=== PATIENT | male | born 1995 | race Hispanic/Latino ===

== ENCOUNTER 2025-07-21 01:00 | Emergency (ER) | payer SELFPAY ==
[~2025-07-21] VITALS: Ht 175.3 cm; Wt 154.7 kg
[2025-07-21 01:28] LABS: RAPID GROUP A STREP negative (NEGATIVE)
[2025-07-21 01:34] LABS: SARS-CoV-2, RNA, NAAT NEGATIVE SARS CoV-2 (NEGATIVE)
[2025-07-21 01:38] LABS: INFLUENZA TYPE B Negative For Type B (NEGATIVE)
[2025-07-21 01:39] LABS: IMMATURE GRANULOCYTE ABSOLUTE 0.03 K/uL (0-1); NUCLEATED RED BLOOD CELLS 0.0 % (0.0-0.19); PLATELET COUNT (AUTO) 303 K/uL (130-400); RED BLOOD CELL COUNT(AUTO) 4.93 MIL/uL (4.50-6.20); RED CELL DISTRIBUTION WIDTH 12.0 % (11.0-15.5); WHITE BLOOD COUNT (AUTO) 10.8 K/uL (4.8-10.8)
[2025-07-21] MEDS: 0.9%NACL 1000ML 1,000 ML IV ONE (01:44)
[2025-07-21 01:49] LABS: CREATININE 1.1 mg/dL (0.5-1.3); GLOMERULAR FILTR. RATE CALC 94.0 mL/min (>90); GLUCOSE,RANDOM 159.0 mg/dL (70-105); SODIUM SERUM 138.0 mmol/L (136-145); UREA NITROGEN, BLOOD 11.0 mg/dL (7-18)
[2025-07-21 01:56] LABS: INFLUENZA TYPE A Positive For Type A (NEGATIVE)
--- NOTE | 2025-07-21 02:52 | ERN ---
General Chief Complaint: Sore Throat Stated Complaint: C/O SORE THROAT X 6 DAYS Time Seen by MD: 01:14 Time Seen by Midlevel: 01:14 Source: patient History of Present Illness Initial Comments The patient is a 21-year-old male presenting to the emergency department for evaluation of a sore throat that started six days ago. Pain has progressively worsened. He has now developed fever and chills. Allergies: Coded Allergies: No Known Drug Allergies (Unverified Allergy, Unknown, 04/30/14) Home Meds Active Scripts Dexamethasone (Dexamethasone) 6 Mg Tablet, 6 MG PO DAILY for 5 Days, #5 TAB 0 Refills Prov:VIVIAN PINO MD 07/21/25 Clindamycin HCl (Clindamycin HCl) 300 Mg Capsule, 1 CAP PO QID for 10 Days, #40 CAP 0 Refills Prov:VIVIAN PINO MD 07/21/25 Past Medical History Past Medical History: No Pertinent History Past Surgical History: None ROS Dictation CONSTITUTIONAL: Negative except for HPI HEAD/FACE: Negative except for HPI EENT: Negative except for HPI RESPIRATORY: Negative except for HPI GASTROINTESTINAL/ABDOMINAL: Negative except for HPI GENITOURINARY: Negative except for HPI MUSCULOSKELETAL: Negative except for HPI INTEGUMENTARY: Negative except for HPI NEUROLOGICAL/PSYCH: Negative except for HPI HEMATOLOGIC/LYMPHATIC: Negative except for HPI All Systems Negative, Except as noted above. 13 point review of systems assessed and all negative except for above. Physical Exam Physical Exam Dictation Vital Signs reviewed General Appearance: Alert, oriented x 3, no acute distress, well developed, nourished. Head and Face: non-traumatic. Eyes: PERRL, pink conjunctivas, eyelid no trauma, anterior chamber with arcus senilis. Ears: Pinnas intact and no signs of trauma or erythema ear canals clear and no discharge TM no erythema Nose: No discharge, no bleeding. Oropharynx: Mouth normal, tongue pink, pharynx clear,no erythema, tonsils no exudates, left peritonsillar abscess, mucous membrane moist Neck: Supple, non-tender, no thyromegaly, no masses, no JVD, no bruits Breast:Deferred Chest:No tenderness, no crepitus, no paradoxical movement, no retractions Lungs:Clear, well-ventilated, symmetric, no rales, no wheezing, no rhonchi, no stridor, good breath sounds bilaterally Heart: Regular rate, regular rhythm, no murmur, no gallops Vascular: no peripheral edema, Abdomen: Soft, positive bowel sounds, nondistended, no guarding, nontender, no rebound, no masses no hepatomegaly, no splenomegaly, no Colvin's sign, no hernias. Rectal: Deferred Genital: Deferred Neurological: Normal speech, motor function intact, sensory function intact Musculoskeletal: Neck nontender, full range of motion, back nontender, full range of motion, Extremities: nontender, full range of motion Skin: Color pink, dry, no turgor, no rash, no lacerations, no abrasions, no contusions. Lymphatic: Deferred Results Laboratory and Microbiology Lab and Micro Result Laboratory Tests Test 07/21/25 01:00 07/21/25 01:33 Influenza Type A Antigen Positive For Type A Influenza Type B Antigen Negative For Type B SARS-CoV-2, RNA, NAAT NEGATIVE SARS CoV-2 Group A Streptococcus Rapid negative (NEGATIVE) White Blood Count 10.8 K/uL (4.8-10.8) Red Blood Count 4.93 MIL/uL (4.50-6.20) Hemoglobin 14.6 g/dL (14.0-18.0) Hematocrit 43.5 % (42-54) Mean Corpuscular Volume 88.2 fL (79-99) Mean Corpuscular Hemoglobin 29.6 pg (27.0-33.0) Mean Corpuscular Hemoglobin Concent 33.6 g/dL (32.0-36.0) Red Cell Distribution Width 12.0 % (11.0-15.5) Platelet Count 303 K/uL (130-400) Mean Platelet Volume 10.8 fL (7.5-10.5) H Immature Granulocyte % (Auto) 0.3 % (0-1) Neutrophils (%) (Auto) 75.2 % (40.0-77.0) Lymphocytes (%) (Auto) 15.8 % (21.0-51.0) L Monocytes (%) (Auto) 7.3 % (3.0-13.0) Eosinophils (%) (Auto) 0.9 % (0.0-8.0) Basophils (%) (Auto) 0.5 % (0.0-5.0) Neutrophils # (Auto) 8.1 K/uL (1.8-7.7) H Lymphocytes # (Auto) 1.7 K/uL (1.0-4.8) Monocytes # (Auto) 0.8 K/uL (0.1-1.0) Eosinophils # (Auto) 0.10 K/uL (0.00-0.70) Basophils # (Auto) 0.05 K/uL (0.00-0.20) Absolute Immature Granulocyte (auto 0.03 K/uL (0-1) Nucleated Red Blood Cells 0.0 % (0.0-0.19) Sodium Level 138 mmol/L (136-145) Potassium Level 3.7 mmol/L (3.5-5.1) Chloride Level 100 mmol/L (101-111) L Carbon Dioxide Level 29 mmol/L (21-32) Blood Urea Nitrogen 11 mg/dL (7-18) Creatinine 1.1 mg/dL (0.5-1.3) Glomerular Filtration Rate Calc 94 mL/min (>90) Random Glucose 159 mg/dL (70-105) H Lactic Acid Level 1.4 mmol/L (0.8-2.5) Total Calcium 9.1 mg/dL (8.5-10.1) Labs Reviewed?: Yes EKG/XRAY/US/CT/MRI CT Scan Comment REASON: r/o left peritonsillar abscess ORDERING PHYSICIAN: RON POLANCO PAC PROCEDURE: NKSOFTI W - CT NECK SOFT TISS W/CONTRAST EXAM: CT Neck With IV Contrast CLINICAL HISTORY: Rule out left peritonsillar abscess. TECHNIQUE: Contiguous axial images were obtained through the neck. Reconstructed imaging. Reformatted/MPR images were performed. CT scan is done according to ALARA (As Low as Reasonably Achievable). CONTRAST: Contrast details are not available. COMPARISON: None. FINDINGS: Included intracranial substances, orbits, and paranasal sinuses are grossly unremarkable. Mildly enlarged left pharyngeal tonsil and demonstrating a subtle hyperdensity 2.7 x 2.2 cm within the left pharyngeal tonsil with a hyperdense rim, concerning developing intra/peritonsillar abscess. Mild effacement of the left parapharyngeal space. The right tonsil appears unremarkable. Mildly enlarged reactive bilateral jugulodigastric and level III lymph nodes are identified, more prominent on the left side. The nasopharynx, oral cavity, hypopharynx, and larynx are grossly unremarkable. Unremarkable epiglottis, vallecula, aryepiglottic folds, pyriform sinuses, and true vocal cords. The hyoid bone, thyroid, cricoid, and arytenoid cartilages are unremarkable. Parotid, submandibular, and thyroid glands are grossly unremarkable except for diffuse fatty infiltration of the bilateral parotid glands. The included lung apices are grossly clear. No acute osseous abnormality. IMPRESSION: Mildly enlarged left pharyngeal tonsil and demonstrating a subtle hyperdensity 2.7 x 2.2 cm within the left pharyngeal tonsil with a hyperdense rim, concerning developing intra/peritonsillar abscess. Mild effacement of the left parapharyngeal space. Mildly enlarged reactive bilateral jugulodigastric and level III lymph nodes are identified, more prominent on the left side. /[place] DICTATED BY: ORLANDO MANUEL Jr., MD DATE: 07/21/25413 ELECTRONICALLY SIGNED BY: ORLANDO MANUEL Jr., MD DATE: 07/21/25413 [facility] MDM: Differential diagnosis: Viral syndrome, strep, peritonsillar abscess Rationale: Tests considered and ordered secondary to shared decision making include: Previous outside records reviewed: Old ER visits. Risk of complication and/or morbidity or mortality of patient management: None Medications-Per medication reconciliation Need for hospitalization: Patient does meet criteria for hospitalization. Need for emergency major/minor surgery: No There are no social concerns with this patient. Prescription drug management Prescriptions will include symptomatic care Patient's prior external medical records from other ER visits were reviewed by me as indicated. Prior testing and results from previous visits were reviewed. Prior tests were taken into account with medical decision making and resource utilization, independent historian/historians were used to obtain complete medical history. I independently interpreted the test that were performed, results were reviewed by me and considered findings on radiology if ordered. Medical management and examination interpretation discussions were had by me with other qualified healthcare professionals as indicated for the patient's care. 3:00 a.m. assumed care of the patient.[facility] This is a 29-year-old male who is extremely obese presented to the emergency room with a sore throat left-sided for more than a week. He was evaluated by the PA and a CT scan of the soft tissues of the neck was done. Patient received Toradol, dexamethasone and there is an evolving possible peritonsillar abscess per Radiology. Patient has no stridor and he is able to open his mouth for me there is minor erythema in the left tonsillar pillar area. I do not see any exudate or pus. When I went to re-evaluate patient and girlfriend were eating a cake and he was swallowing without any difficulty. I updated patient that I will be discharging him home with a p.o. antibiotics as there is no dysphagia at this time and no labored breathing or evidence of any upper airway obstruction. I instructed him to return to the emergency room ary should he have any worsening symptoms. I counseled extensively on weight loss and lifestyle modifications. ED Course Orders Procedure Category Date Status Time Covid Rna Naat LAB 07/21/25 Complete 01:08 Influenza Type A & B, LAB 07/21/25 Complete Rapid 01:08 Rapid (Group A Strep) LAB 07/21/25 Complete 01:08 Cbc With Differential LAB 07/21/25 Complete 01:29 Basic Metabolic Panel LAB 07/21/25 Complete 01:29 Blood Cult SARAHY 07/21/25 In Process 01:29 Lactic Acid LAB 07/21/25 Complete 01:29 Ketorolac PHA 07/21/25 Complete Tromethamine 15mg/Ml 01:30 Dexamethasone 4mg/Ml PHA 07/21/25 Complete 1ml Vial (Dexametha 01:30 0.9%Nacl 1000ml (Ns PHA 07/21/25 Complete 1000ml) 02:00 Ct Neck Soft Tiss CT 07/21/25 Resulted W/Contrast 02:07 Amp/Sulbac 3gm+Ns PHA 07/21/25 Complete 100ml (Unasyn 3gm+Ns 1 03:30 Current Medications Medications (Trade) Dose Ordered Sig/Liam Route PRN Reason Start Time Stop Time Status Last Admin Dose Admin Ampicillin Sodium/ Sulbactam Sodium (Unasyn 3gm+NS 100ml) 3 gm ONCE ONCE IV 07/21/25 03:30 07/21/25 03:32 DC Dexamethasone Sodium Phosphate (dexaMETHasone 4MG/ML 1ML VIAL) 10 mg ONCE ONCE IV 07/21/25 01:30 07/21/25 01:33 DC 07/21/25 01:45 Ketorolac Tromethamine (toRADol) 15 mg ONCE ONCE IV 07/21/25 01:30 07/21/25 01:33 DC 07/21/25 01:44 Sodium Chloride 1,000 ml @ 0 mls/hr ONCE ONCE IV 07/21/25 02:00 07/21/25 02:01 DC 07/21/25 01:44 Vital Signs Date Time Temp Pulse Resp B/P (MAP) Pulse Ox O2 Delivery O2 Flow Rate FiO2 07/21/25 02:53 82 17 148/86 97 Room Air* 0 21 07/21/25 01:35 98.8 94 18 156/76 97 Room Air* 0 21 07/21/25 01:02 98.8 110 20 161/90 97 Room Air DX & DISP Disposition: Discharge Departure Impression: Primary Impression: Influenza A Additional Impression: Peritonsillar abscess Condition: Stable Scripts Oseltamivir Phosphate (Tamiflu) 75 Mg Cap 75 MG PO BID, #10 CAP 0 Refills Prov: VIVIAN PINO MD 07/21/25 Dexamethasone (Dexamethasone) 6 Mg Tablet 6 MG PO DAILY for 5 Days, #5 TAB 0 Refills Prov: VIVIAN PINO MD 07/21/25 Clindamycin HCl (Clindamycin HCl) 300 Mg Capsule 1 CAP PO QID for 10 Days, #40 CAP 0 Refills Prov: VIVIAN PINO MD 07/21/25 Additional Instructions: Patient and the caregiver have been informed of all the diagnostic tests and the imaging conducted during the today's visit to the emergency room and has verbalized understanding of the results I have personally reviewed and interpreted all diagnostic exams performed here in the ER today as well as the vital signs documented by the nursing staff. The patient is now being discharged to home and should follow up with the primary care physician or the specialist as directed by the ER staff. Extensive instructions in terms of any worsening difficulty breathing, stridorous breathing, dysphagia, loss of voice he needs to immediately return to the emergency room. From the radiologist review the peritonsillar area is developing an abscess but it is not yet. Patient has no stridor, respirations are nonlabored and he is able to swallow without any difficulty. He will be discharged to home on dexamethasone and clindamycin. Referrals: NONE (PCP) Time of Disposition: 02:52 I have reviewed the case, and I agree with, Diagnosis and Plan I performed the substantive portion of the visit. I have reviewed and personally made and approve the management plan that is documented in the note by myself or the RACHELLE. I acknowledge for responsibility for the patient's management plan. RON POLANCO Jul 21, 2025 02:52 VIVIAN PINO MD Jul 21, 2025 03:22
--- NOTE | 2025-07-21 03:15 | HMCIMG ---
EXAM: CT Neck With IV Contrast CLINICAL HISTORY: Rule out left peritonsillar abscess. TECHNIQUE: Contiguous axial images were obtained through the neck. Reconstructed imaging. Reformatted/MPR images were performed. CT scan is done according to ALARA (As Low as Reasonably Achievable). CONTRAST: Contrast details are not available. COMPARISON: None. FINDINGS: Included intracranial substances, orbits, and paranasal sinuses are grossly unremarkable. Mildly enlarged left pharyngeal tonsil and demonstrating a subtle hyperdensity 2.7 x 2.2 cm within the left pharyngeal tonsil with a hyperdense rim, concerning developing intra/peritonsillar abscess. Mild effacement of the left parapharyngeal space. The right tonsil appears unremarkable. Mildly enlarged reactive bilateral jugulodigastric and level III lymph nodes are identified, more prominent on the left side. The nasopharynx, oral cavity, hypopharynx, and larynx are grossly unremarkable. Unremarkable epiglottis, vallecula, aryepiglottic folds, pyriform sinuses, and true vocal cords. The hyoid bone, thyroid, cricoid, and arytenoid cartilages are unremarkable. Parotid, submandibular, and thyroid glands are grossly unremarkable except for diffuse fatty infiltration of the bilateral parotid glands. The included lung apices are grossly clear. No acute osseous abnormality. IMPRESSION: Mildly enlarged left pharyngeal tonsil and demonstrating a subtle hyperdensity 2.7 x 2.2 cm within the left pharyngeal tonsil with a hyperdense rim, concerning developing intra/peritonsillar abscess. Mild effacement of the left parapharyngeal space. Mildly enlarged reactive bilateral jugulodigastric and level III lymph nodes are identified, more prominent on the left side. /[place]
[2025-07-21] MEDS: AMP/SULBAC 3GM+NS 100ML IV ONE (04:30)
[2025-07-21] MEDS: OSELTAMIVIR PHOSPHATE 75 MG CAP PO ONE (04:32)
[2025-07-21 05:17] VITALS: BP 151/97; PULSE 76; RESP 16; TEMP 98.5; O2SAT 99
[2025-07-21] MEDS ORDERED: IOHEXOL-350 50ML VIAL IV ONE (07:19)
== END 2025-07-21 05:19 | disposition home or self-care (01) ==
LOC: EDH 01:00
DX: J10.1 Influenza due to other identified influenza virus with other respiratory manifestations (principal); J36 Peritonsillar abscess; Z20.822 Contact with and (suspected) exposure to COVID-19; Z79.52 Long term (current) use of systemic steroids
CPT/HCPCS: 99285; 96365; 70491; 96361; 96375; 87635; 80048; 85025; 87040 ×2; 87880; 87804 ×2; 83605; 36415; J1100; J1885; J7030; Q9967; J0295